=== PATIENT | female | born 1985 | race Caucasian/White ===

== ENCOUNTER → 2016-10-28 | Outpatient (CLI) | payer OTHER ==
[~2016-10-28] MED LIST: BCPILLS PO
[2016-10-31 11:13] LABS: CHLAMYDIA TRACH RNA*** NOT DETECTED (NOT DETECTED); GC (NEIS GONORRHOEAE)RNA** NOT DETECTED (NOT DETECTED); HERPES SIMPLEX CULT SOURCE GENITAL-VULVAL; HERPES SIMPLEX VIRUS CULT NOT ISOLATED (NOT ISOLATED)
== END | disposition home or self-care (01) ==
LOC: C.LABSPEC 13:44
PROVIDERS: ATTEND Physician Assistant
DX: N94.9 Unspecified condition associated with female genital organs and menstrual cycle (principal)

== ENCOUNTER → 2016-11-08 | Outpatient (CLI) | payer OTHER ==
--- NOTE | 2016-11-08 14:46 | DIAGNOSTIC IMAGING REPORT ---
MRI right knee RIGHT LOWER EXT JOINT WITHOUT CLINICAL HISTORY: R KNEE PAIN Right pain TECHNIQUE: Multi axial MRI acquisition COMPARISON STUDY: None FINDINGS: Signal characteristics the osseous structures are unremarkable. There is no significant joint effusion. There is a very small popliteal cyst measuring approximately 5 x 10 mm posterior to the medial joint compartment. There is trace amount surrounding soft tissue edema. Collateral ligaments structures are intact. The menisci are unremarkable. Cruciate ligaments are intact. Articular services are intact throughout. IMPRESSION: 1. Very small popliteal cyst posterior to the medial compartment. 2.. The study is otherwise negative. Electronically signed by: Lexa Hernandez M.D. 11/08/2016 2:45 PM Dictated Date/Time: 11/08/2016 2:40 PM
== END | disposition home or self-care (01) ==
LOC: C.MRI 13:00
DX: M25.561 Pain in right knee (principal)

== ENCOUNTER → 2017-02-04 | Outpatient (CLI) | payer OTHER | END | disposition home or self-care (01) | LOC: C.PAPS 09:51 | PROVIDERS: ATTEND Obstetrics & Gynecology | DX: Z12.4 Encounter for screening for malignant neoplasm of cervix (principal) ==

== ENCOUNTER → 2017-02-04 | Outpatient (CLI) | payer OTHER ==
[2017-02-04 15:58] LABS: URINE APPEARANCE CLEAR (CLEAR); URINE BILIRUBIN NEG (NEG); URINE COLOR YELLOW; URINE NITRITE NEG (NEG); URINE PH 7.5 (4.5-7.5); URINE SPECIFIC GRAVITY 1.017 (1.000-1.030); UROBILINOGEN NEG (NEG)
[2017-02-04 16:04] LABS: MANUAL MICROSCOPIC REQUIRED? NO; REVIEW REQ? NO
[2017-02-07 01:22] LABS: CHLAMYDIA TRACH RNA*** NOT DETECTED (NOT DETECTED); GC (NEIS GONORRHOEAE)RNA** NOT DETECTED (NOT DETECTED)
== END | disposition home or self-care (01) ==
LOC: C.LABSPEC 15:39
PROVIDERS: ATTEND Obstetrics & Gynecology
DX: Z34.81 Encounter for supervision of other normal pregnancy, first trimester (principal)

== ENCOUNTER → 2017-02-06 | Outpatient (CLI) | payer OTHER ==
[2017-02-06 13:25] LABS: BASO % 0.6 %; BASO ABS # 0.03 K/uL (0-0.2); COMPLETE YES; EOS % 3.2 %; HEMATOCRIT 39.3 % (37-47); IG% 0.2 %; LYMPH % 23.2 %; LYMPH ABS # 1.24 K/uL (1.2-3.4); MEAN CELL VOLUME 95.2 fL (80-100); MEAN CORPUSCULAR HEMOGLOBIN 33.7 pg (25-34); MEAN CORPUSCULAR HGB CONC 35.4 g/dl (32-36); MEAN PLATELET VOLUME 9.3 fL (7.4-10.4); NEUT % 64.8 %; PLATELET COUNT 210 K/uL (130-400); RED BLOOD COUNT 4.13 M/uL (4.2-5.4); WHITE BLOOD COUNT 5.35 K/uL (4.8-10.8)
== END | disposition home or self-care (01) ==
LOC: C.LAB1850 11:54
PROVIDERS: ATTEND Obstetrics & Gynecology
DX: Z34.81 Encounter for supervision of other normal pregnancy, first trimester (principal)

== ENCOUNTER → 2017-03-28 | Outpatient (CLI) | payer OTHER ==
[2017-03-28 13:56] LABS: GTGD 50 Grams
== END | disposition home or self-care (01) ==
LOC: C.LAB1850 12:13
PROVIDERS: ATTEND Obstetrics & Gynecology
DX: Z34.81 Encounter for supervision of other normal pregnancy, first trimester (principal); Z3A.00 Weeks of gestation of pregnancy not specified

== ENCOUNTER → 2017-06-11 | Outpatient (CLI) | payer OTHER ==
[2017-06-11 14:29] LABS: URINE APPEARANCE CLEAR (CLEAR); URINE BILIRUBIN NEG (NEG); URINE COLOR YELLOW; URINE EPITHELIAL CELL AUTO >30 /lpf (0-5); URINE NITRITE NEG (NEG); URINE PH 7.5 (4.5-7.5); URINE SPECIFIC GRAVITY 1.012 (1.000-1.030); UROBILINOGEN NEG (NEG)
[2017-06-11 14:37] LABS: MANUAL MICROSCOPIC REQUIRED? NO; REVIEW REQ? NO
== END | disposition home or self-care (01) ==
LOC: C.LABSPEC 13:21
PROVIDERS: ATTEND Obstetrics & Gynecology
DX: Z34.82 Encounter for supervision of other normal pregnancy, second trimester (principal)

== ENCOUNTER → 2017-08-07 | Outpatient (CLI) | payer OTHER | END | disposition home or self-care (01) | LOC: C.LABSPEC 15:04 | PROVIDERS: ATTEND Obstetrics & Gynecology | DX: Z34.83 Encounter for supervision of other normal pregnancy, third trimester (principal); Z3A.00 Weeks of gestation of pregnancy not specified ==

== ENCOUNTER 2017-09-09 03:05 | Inpatient (IN) | payer OTHER ==
[~2017-09-09] VITALS: Ht 165.1 cm; Wt 85.0 kg
[~2017-09-09 03:05] MED LIST changes: -BCPILLS PO; +PRENTAB26 PO
[2017-09-09 07:59] VITALS: Ht 165.1 cm; Wt 85.0 kg
[2017-09-09] MEDS ORDERED: LACTATED RINGER'S 1000ML 1,000 ML IV PRN (08:04)
[2017-09-09] MEDS ORDERED: LACTATED RINGER'S 1000ML 500 ML IV PRN ×2 (08:08→14:15)
[2017-09-09 08:37] LABS: HEMATOCRIT 36.7 % (37-47); HEMOGLOBIN 11.4 g/dL (12.0-16.0); MEAN CELL VOLUME 87.6 fL (80-100); MEAN CORPUSCULAR HEMOGLOBIN 27.2 pg (25-34); MEAN CORPUSCULAR HGB CONC 31.1 g/dl (32-36); MEAN PLATELET VOLUME 9.9 fL (7.4-10.4); NUCLEATED RED BLOOD CELL ABS 0.02 K/uL (0-0); PLATELET COUNT 174 K/uL (130-400); RED CELL DISTRIBUTION WIDTH CV 15.4 % (11.5-14.5); RED CELL DISTRIBUTION WIDTH SD 49.4 fL (36.4-46.3); WHITE BLOOD COUNT 7.97 K/uL (4.8-10.8)
[2017-09-09] MEDS: LACTATED RINGER'S 1000ML 1,000 ML IV SCH ×3 (08:45→18:20)
[2017-09-09] MEDS: OXYTOCIN 30 UNITS/500ML NSS IV PRN (08:56)
[2017-09-09] MEDS ORDERED: FENTANYL CITRATE INJ 50 MCG/1 ML 2 ML VIAL ONE (13:06)
[2017-09-09] MEDS ORDERED: EpHEDrine SULFATE INJ 50 MG/ML AMP ONE (13:06)
[2017-09-09] MEDS ORDERED: BUPIVACAINE 0.25% 30 ML VIAL ONE (13:06)
[2017-09-09] MEDS ORDERED: FENTANYL 2MCG/ML ROPIV 1.25MG/ML 100ML BAG EPI ONE (13:07)
[2017-09-09] MEDS ORDERED: NALBUPHINE HCL INJ 10 MG/ML AMP IV PRN (14:15)
[2017-09-09] MEDS ORDERED: NALOXONE HCL INJ 1 MG in SODIUM CHLORIDE 0.9% 1000ML 1,000 ML IV PRN (14:15)
[2017-09-09] MEDS ORDERED: EpHEDrine SULFATE INJ 50 MG/ML AMP IV PRN (14:15)
[2017-09-09] MEDS ORDERED: NALOXONE HCL INJ 0.4 MG/1 ML VIAL/CARP IV PRN (14:15)
[2017-09-09] MEDS ORDERED: DiphenhydrAMINE HCL 50 MG/ML VIAL IV PRN (14:15)
[2017-09-09] MEDS: FENTANYL 2MCG/ML ROPIV 1.25MG/ML 100ML BAG EPI PRN ×2 (19:01→22:54)
[2017-09-09] MEDS ORDERED: ACETAMINOPHEN 325 MG TAB PO PRN (21:45)
[2017-09-09] MEDS: ONDANSETRON INJ 2 MG/ML 2 ML VIAL IV PRN (22:02)
[2017-09-10] MEDS: LACTATED RINGER'S 1000ML 1,000 ML IV SCH (00:57)
[2017-09-10] MEDS ORDERED: METHYLERGONOVINE MALEATE 0.2 MG/ML AMP ONE (03:25)
[2017-09-10] MEDS: OXYTOCIN 30 UNITS/500ML NSS IV PRN (03:42)
[2017-09-10] MEDS: ONDANSETRON INJ 2 MG/ML 2 ML VIAL IV PRN (03:42)
[2017-09-10] MEDS ORDERED: OXYCODONE/ACETAMINOPHEN 5-325 TAB PO PRN (03:45)
[2017-09-10] MEDS ORDERED: SUPERCREAM 0.870 % 15GM JAR EXT PRN (03:45)
[2017-09-10] MEDS ORDERED: HYDROCORTISONE ACETATE 25 MG SUPP PR PRN (03:45)
[2017-09-10] MEDS ORDERED: BENZOCAINE 20% AER SPR 82.5 GM CAN EXT PRN (03:45)
[2017-09-10] MEDS ORDERED: DIPHTHERIA/TETANUS/PERTUSSIS 0.5 ML SYR/VIAL IM. ONE (03:45)
[2017-09-10] MEDS ORDERED: LANOLIN OINT EXT PRN (03:45)
[2017-09-10] MEDS ORDERED: ACETAMINOPHEN 325 MG TAB PO PRN (03:45)
[2017-09-10] MEDS ORDERED: METHYLERGONOVINE MALEATE 0.2 MG/ML AMP IM ONE (03:45)
[2017-09-10] MEDS ORDERED: OXYTOCIN 30 UNITS/500ML NSS IV PRN (03:45)
[2017-09-10] MEDS: IBUPROFEN 600 MG TAB PO PRN ×3 (04:02→18:08)
[2017-09-10 06:00] VITALS: BP 109/71; PULSE 82; TEMP 36.7
--- NOTE | 2017-09-10 07:22 | DELIVERY SUMMARY ---
DATE OF OPERATION: 09/10/2017 PREOPERATIVE DIAGNOSIS: Intrauterine of 40 and 6/7 weeks. POSTOPERATIVE DIAGNOSIS: Same. PROCEDURES: 1. Cruz bulb for cervical ripening. 2. Pitocin augmentation. 3. Epidural. 4. Normal spontaneous vaginal delivery. 5. Second degree perineal laceration and right labial laceration with repair. SURGEON: Keyonna Veras MD. ANESTHESIA: Epidural. ESTIMATED BLOOD LOSS: 450 mL. DESCRIPTION OF THE PROCEDURE: The patient presented to labor and delivery after having had a Cruz bulb placed the previous evening. The Cruz bulb was removed with gentle traction and she was found to be 3, 50% and -3. She underwent Pitocin augmentation until she was in a good contraction pattern. I was unable to break the water at that point in time because the baby was too high and the cervix too posterior. So an epidural anesthetic was called for. Once the baby reached -2 station, I was able to better reach the cervix and an amniotomy was performed for bloody tinged fluid which was most likely due to cervical manipulation. At this point in time, she was 4 and about 75%. She progressed quite slowly with Pitocin augmentation but did make forward progress to complete complete and +2 station. Just prior to pushing, meconium was noted. She pushed effectively to deliver a viable female in AMBIKA presentation. There was no nuchal cord. The anterior shoulder and rest of the body was delivered easily. After delivery of the baby, a large amount of brown meconium was noted. The baby made efforts at crying and so the nose and mouth were bulb suctioned. The infant was placed on maternal abdomen for drying and attention where the cord was clamped and cut. Cord blood segment were obtained. Placenta was delivered spontaneously intact with a 3-vessel cord. Cervix, sulci and rectum were examined and found to be intact. A second degree perineal laceration was repaired with 3-0 Vicryl in a normal standard fashion. The right labial laceration was repaired with interrupted sutures of 4-0 Vicryl. Hemostasis was obtained with dilute Pitocin, fundal massage and IM Methergine. I did remove some clot from the lower uterine segment until the uterus was firm. Apgars were 8 and 9. Mother and baby doing well at the end of the delivery. I attest to the content of the Intraoperative Record and any orders documented therein. Any exception s are noted below.
[2017-09-10 08:02] VITALS: BP 114/72; PULSE 76; TEMP 36.3
--- NOTE | 2017-09-10 08:17 | Anesthesia Procedure Note ---
Anesthesia Epidural Removal Nt Date & Time Sep 10, 2017 at 08:17 Vital Signs Pain Intensity: 2.0 Vital Signs Past 12 Hours Date Time Temp Pulse Resp B/P (MAP) Pulse Ox O2 Delivery O2 Flow Rate FiO2 09/10/17 06:00 36.7 82 18 109/71 (84) Room Air Notes Mental Status: alert / awake / arousable, participated in evaluation Nausea / Vomiting: adequately controlled Pain: adequately controlled Airway Patency, RR, SpO2: stable & adequate BP & HR: stable & adequate Hydration State: stable & adequate Neuraxial Anesthesia: was administered, sensory block is resolved Anesthetic Complications: no major complications apparent, pt satisfied with anesthetic care Epidural: removed without complications, with tip intact
[2017-09-10] MEDS: PRENATAL VITAMIN TAB PO SCH (08:51)
[2017-09-10] MEDS: DOCUSATE SODIUM 100 MG CAP PO SCH ×2 (08:51→20:11)
[2017-09-10 12:00] VITALS: BP 105/70; PULSE 66; TEMP 36.5
[2017-09-10 15:15] VITALS: BP 115/75; PULSE 77; TEMP 36.8
[2017-09-10 19:20] VITALS: BP 115/75; PULSE 72; TEMP 36.5; O2SAT 97
[2017-09-10 23:15] VITALS: BP 107/70; PULSE 67; TEMP 36.5
[2017-09-11 03:35] VITALS: BP 110/70; PULSE 62; TEMP 36.3
[2017-09-11] MEDS: IBUPROFEN 600 MG TAB PO PRN ×2 (03:43→08:26)
--- NOTE | 2017-09-11 07:00 | Progress Note ---
Subjective Sep 11, 2017. Subjective conversation w/ patient, physical exam Ambulation: ambulating normally Voiding: no voiding problems Passing Gas: Yes Diet Tolerance: Regular Diet Lochia: Small Feeding Type: Breast Feeding Pain: well controlled, no complaints Comment: pt seen and assessed at bedside this am; no acute events overnight Review of Systems Constitutional: No fever Respiratory: No cough, No shortness of breath Cardiac: + edema, No chest pain Abdomen: No nausea, No vomiting no headaches. reported some calf cramping last night bilaterally, but this has resolved. Objective Vital Signs Date Time Temp Pulse Resp B/P (MAP) Pulse Ox O2 Delivery O2 Flow Rate FiO2 09/11/17 03:35 36.3 62 16 110/70 (83) Room Air 09/10/17 23:15 Room Air 09/10/17 23:15 36.5 67 18 107/70 (82) Room Air 09/10/17 19:20 36.5 72 18 115/75 (88) 97 Room Air 09/10/17 15:15 36.8 77 18 115/75 (88) Room Air 09/10/17 15:15 Room Air 09/10/17 12:00 36.5 66 18 105/70 (82) Room Air 09/10/17 08:05 Room Air 09/10/17 08:02 36.3 76 14 114/72 (86) Physical Exam General Appearance: WELL-APPEARING, WD/WN, NO APPARENT DISTRESS Respiratory/Chest: chest non-tender, lungs clear, normal breath sounds Cardiovascular: regular rate, rhythm, no murmur Abdomen: normal bowel sounds, non tender, soft Fundus: Firm, Non-Tender, Relation to Umbilicus (2 below) Extremities: normal range of motion, non-tender, normal inspection, no calf tenderness, + pedal edema (1+ bilaterally) Laboratory Results Last 24 Hours Test 09/11/17 04:44 Medications Current Inpatient Medications Medications (Trade) Dose Ordered Sig/Iglesia Route Start Time Stop Time Status Last Admin Dose Admin Oxytocin (Pitocin IV) 30 units UD PRN IV 09/10/17 03:45 10/10/17 03:44 Benzocaine (Dermoplast Aero Spr) 1 appln PRN PRN EXT 09/10/17 03:45 10/10/17 03:44 09/10/17 05:41 1 APPLN Cocaine HCl (Supercream 0.870% Cr) BID PRN EXT 09/10/17 03:45 09/24/17 03:44 Hydrocortisone Acetate (Anusol Hc Supp) 25 mg BID PRN MT 09/10/17 03:45 10/10/17 03:44 Lanolin (Lanolin Oint) PRN PRN EXT 09/10/17 03:45 10/10/17 03:44 Prenat Multivit/ Radio Personality/Iron/Folic Ac ( Vitamin Tab) 1 tab DAILY PO 09/10/17 08:00 10/10/17 07:59 09/10/17 08:51 1 TAB Ibuprofen (Motrin Tab) 600 mg Q4H PRN PO 09/10/17 03:45 10/10/17 03:44 09/11/17 03:43 600 MG Acetaminophen (Tylenol Tab) 650 mg Q6H PRN PO 09/10/17 03:45 10/10/17 03:44 Oxycodone/ Acetaminophen (Percocet 5-325mg Tab) 1 tab Q4H PRN PO 09/10/17 03:45 09/24/17 03:44 Docusate Sodium (coLACE CAP) 100 mg BID PO 09/10/17 08:00 10/10/17 07:59 09/10/17 20:11 100 MG Assessment and Plan Post- Day#: 1 Continue Routine Care: 32 yo PPD1 s/p Pt doing well clinically Continue routine care Encourage ambulation, Encourage breast feeding Pain control with meds prn Discharge instructions reviewed Resident Physician Supervision Note: I interviewed and examined the patient. Discussed with Dr. Herzog and agree with findings and plan as documented in the note. Any exceptions or clarifications are listed here: [None] Documented By: Trey Pisano Resident Tracking Resident Involvement: Resident Care Provided Care Provided: OB Delivery
--- NOTE | 2017-09-11 07:01 | Discharge Instructions ---
Discharge Instructions Date of Service Sep 11, 2017. Admission Reason for Admission: Induction Discharge Discharge Diagnosis / Problem: s/p Discharge Goals Goal(s): Routine recovery after delivery Medications Continue Dispensed Medications: supercream, dermaplast, tucks, lansinoh Activity Recommendations Activity Limitations: per Instructions/Follow-up section . Instructions / Follow-Up Instructions / Follow-Up ACTIVITY RECOMMENDATIONS: * Gradual return to full activity over the next 2-3 weeks. * No lifting - nothing heavier than baby over the next 2-3 weeks. * Do not engage in vigorous exercise, sexual activity or sports until cleared by your physician. * Do not drive or operate any motorized equipment until cleared by your physician. * You may shower/bathe daily. MEDICATIONS: For discomfort or pain, you may use Acetaminophen (Tylenol), Ibuprofen (Advil), or Naproxen (Aleve) following the package directions. For constipation you may use Colace following the package directions. BREAST CARE: If you are not breast feeding: * Wear a supportive bra 24 hours a day for one to two weeks. * Avoid stimulating your breasts and nipples as much as possible during the first few weeks after delivery. * When taking a shower, have the warm water hit your back, not breasts. * When your breasts feel full, apply ice packs. Usually three to four times a day helps ease the discomfort. * Take a mild pain medication (Tylenol / Motrin) when you are uncomfortable. If breast feeding: * Use breast milk to lubricate nipples. Lansinoh cream may be used for sore nipples. You do not need to remove cream prior to breast feeding. If using a different brand of cream, check the label for directions regarding removal of cream prior to nursing. * Wear a supportive bra. * If having problems with breasts or breast feeding, call a application security consultant or your health care provider. EPISIOTOMY CARE: After delivery, if you have an episiotomy (stitches), the following steps will ease discomfort and aid healing. * For the first 24 hours after delivery, place ice packs next to your episiotomy to help reduce swelling. * After the first 24 hour-period, sitz baths, either portable or in the tub, are suggested. A shower with a shower arm sprayed over the episiotomy may be comforting. * Maria A care should be done after each voiding and bowel movement. Squirt warm water from a plastic bottle over the perineum (region of the body between the anus and urinary opening) and pat dry. * Use Dermoplast to ease discomfort. Shake container. [place] directly over the episiotomy. Place a Tucks on a clean sanitary pad next to your episiotomy. SPECIAL CARE INSTRUCTIONS: When you are discharged from the hospital, it is important for you to follow the instructions listed below: * During the first week at home, you should be able to care for yourself and your baby. In addition, the usual light household activities are encouraged. * Limit your activities to the way you feel. Do not try to clean the house or move furniture. Be sensible. * If you actively engage in sports and have done so up until the time of your delivery, you may resume these activities as soon as you feel able. This may take up to one month or even longer. Use good judgment. * Continue to take your vitamins for at least six weeks after the of your baby. * Your diet need not be limited unless you were on a special diet before your delivery. Breast-feeding mothers need around 2500 calories per day and at least 64-80 ounces of fluid per day (8 to 10 glasses). * You should eat foods from the four major food groups. Crash diets or fad diets are to be avoided. Eating lean meats, fresh fruits and vegetables, low-fat dairy products, high fiber foods and a regular exercise program, will help you get back to your pre- weight without putting your health at risk. * Constipation is sometimes a problem after delivery. Take a mild laxative as needed. If breast feeding, Milk of Magnesia is acceptable to use. You may use a suppository or Fleets enema if no episiotomy. * A daily shower or tub bath is suggested. Be sure to thoroughly and gently dry the perineum. * A bloody vaginal discharge will usually continue until around four weeks post . A small amount of bleeding may continue for as long as six weeks. Vaginal discharge changes from the bright red bleeding after delivery to pink then brownish and finally yellowish-pink before becoming white and disappearing. * Bleeding may increase with activity. Your first period may come in 4-8 weeks. If you are breast feeding, your period may be delayed even longer. * [place] (sex) can begin whenever both you and your partner feel comfortable and do not have any form of genital infection. It is recommended that you wait at least six weeks for internal and external healing to occur. If you have questions, please talk to your health care practitioner. A condom should be used to prevent infection and . * Foreplay, gentle intercourse and lubrication is very important the first several times to prevent pain. A water-based lubricant such as K-Y jelly or Astroglide may be used. * If you have RH negative blood and your baby is RH positive, you will receive RHOGAM by injection prior to discharge. The nurse will give you a card to keep with you that has the date and place that you received RHOGAM after delivery. * During your care, you had a Rubella screen done to check for the presence of rubella antibodies in your blood. If your test was negative, you will receive a Rubella vaccine prior to discharge. This vaccine may cause a fever, soreness at the injection site and flu-like symptoms. If these symptoms persist, notify your health care practitioner. is not advised for one month after a Rubella vaccine. * Verbalizes understanding of car seat law as reviewed with patient nursing. * Car Seat hand-out given and reviewed with patient by nursing. * Shaken baby information reviewed with patient by nursing. Call you doctor if: * Heavy bleeding (saturating several pads an hour) or passing clots the size of your fist. * A fever >101 degrees F (38.3 degrees C) on two occasions four hours apart and /or chills. * Unusual pain in the pelvic or vaginal areas. * "Baby Blues" lasting longer than two weeks. If you have any questions or concerns, call your health care practitioner at . FOLLOW UP VISIT: * Please call the office at to schedule a 6 week examination. It is important you keep this appointment. It is important for you to make arrangements for either yearly or twice yearly check-ups thereafter. Current Hospital Diet Patient's current hospital diet: Regular OB Diet Discharge Diet Recommended Diet: Regular OB Diet Pending Studies Studies pending at discharge: no Medical Emergencies . Who to Call and When: Medical Emergencies: If at any time you feel your situation is an emergency, please call [phone] immediately. . Non-Emergent Contact Non-Emergency issues call your: Meat Stock Clerk . . "Provider Documentation" section prepared by Rosenda Manley. .
[2017-09-11 07:57] LABS: HEMATOCRIT 33.1 % (37-47); HEMOGLOBIN 10.6 g/dL (12.0-16.0)
[2017-09-11] MEDS: PRENATAL VITAMIN TAB PO SCH (08:24)
[2017-09-11] MEDS: DOCUSATE SODIUM 100 MG CAP PO SCH (08:24)
[2017-09-11 08:30] VITALS: BP 122/75; PULSE 86; TEMP 36.6; O2SAT 98
[2017-09-11 14:55] VITALS: BP_DIAS 75; PULSE 86; TEMP 36.6
== END 2017-09-11 15:05 | disposition home or self-care (01) | DRG 775 ==
LOC: C.LD 07:32 → C.OBG 09-10 05:58
PROVIDERS: ADMIT Obstetrics & Gynecology; ATTEND Obstetrics & Gynecology
PROC: 0KQM0ZZ Repair Perineum Muscle, Open Approach (ICD-10-PCS; principal; 2017-09-10)
PROC: 10E0XZZ Delivery of Products of Conception, External Approach (ICD-10-PCS; principal; 2017-09-10)
PROC: 3E033VJ Introduction of Other Hormone into Peripheral Vein, Percutaneous Approach (ICD-10-PCS; principal; 2017-09-10)
DX: O48.0 Post-term pregnancy (principal); O70.1 Second degree perineal laceration during delivery; Z3A.41 41 weeks gestation of pregnancy; Z37.0 Single live birth